=== PATIENT | male | born 1990 | race American Indian/Alaskan Native ===

== ENCOUNTER 2018-08-27 06:03 | Emergency (ER) | payer SELFPAY ==
[2018-08-27 06:20] VITALS: BP 129/80
[2018-08-27] MEDS ORDERED: PROVENTIL IH ONE (06:35)
--- NOTE | 2018-08-27 07:00 | XRay Report ---
PROCEDURE: XR CHEST ROUTINE 2V TECHNIQUE: PA and lateral views of the chest were obtained. HISTORY: MINISTERIO COMPARISONS: None FINDINGS: The lungs are clear. The heart size is normal. No fluid is not seen. The bones and soft tissues appea r normal. IMPRESSION: No acute cardiopulmonary process.. This document is electronically signed by Corby Núñez MD., August 27 2018 06:57:36 AM ET
== END 2018-08-27 09:02 | disposition left against medical advice (07) ==
LOC: ED 06:03
DX: R06.00 Dyspnea, unspecified (principal); Z53.21 Procedure and treatment not carried out due to patient leaving prior to being seen by health care provider
CPT/HCPCS: 71046